=== PATIENT | female | born 1965 | race Caucasian/White ===

== ENCOUNTER 2017-12-24 11:43 | Emergency (ER) | payer OTHER, SELFPAY ==
[2017-12-24 11:50] VITALS: BP 107/74; PULSE 80; RESP 12; TEMP 36.5; O2SAT 100
--- NOTE | 2017-12-24 14:04 | DI.RAD.S_ITS ---
PROCEDURE: XR WRIST RT MIN 3V INDICATIONS: struck lt wrist several days ago, proximal pain/swelling TECHNIQUE: 4 views of the wrist were acquired. COMPARISON: None. FINDINGS: Bones: No fractures or dislocations. No suspicious bony lesions. Scaphoid view: No trauma found. Soft tissues: No suspicious soft tissue calcifications. IMPRESSION: No trauma found. Dictated by: Gage Kelley M.D. on 12/24/2017 at 15:06 Approved by: Gage Kelley M.D. on 12/24/2017 at 15:06
--- NOTE | 2017-12-24 14:42 | ED.UPPEXIN ---
HPI - Extremity Injury (Upper) <LACEY Coleman - Last Filed: 12/24/17 22:07> General Chief Complaint: Extremity Injury, Upper Stated Complaint: INJURED RIGHT ARM Time Seen by Provider: 12/24/17 14:51 Source: patient Mode of arrival: ambulatory Limitations: no limitations History of Present Illness HPI narrative: 52-year-old female here for complaint of pain into her right wrist over the last 4-5 days. She states that it started hurting after she was getting something out of her trunk and she thinks she bumped it into something several days ago. She reports increased pain with motion of the right wrist. She reports that not moving the right wrist helps with her discomfort. She states that she feels a over a been when she moves her right wrist. She denies any other injuries or concerns. MD complaint: injury to: right and wrist Related Data Previous Rx's Medication Instructions Recorded ciprofloxacin HCl [Cipro] 500 mg PO BID 7 Days #0 tab 11/22/15 metronidazole [Flagyl] 500 mg PO TID 7 Days #0 11/22/15 Allergies Allergy/AdvReac Type Severity Reaction Status Date / Time No Known Drug Allergies Allergy Verified 12/24/17 14:44 Review of Systems <LACEY Coleman - Last Filed: 12/24/17 22:07> Constitutional Denies chills, Denies fever(s), Denies lethargy and Denies weakness Eyes Denies change in vision, Denies eye discharge, Denies irritation and Denies loss of vision ENT Ears, Nose, Mouth, and Throat: Denies change in voice, Denies neck pain and Denies sore throat Cardiovascular Denies chest pain, Denies irregular heart rhythm, Denies lightheadedness, Denies palpitations, Denies dyspnea, Denies dyspnea on exertion and Denies orthopnea Respiratory Denies cough, Denies dyspnea, Denies dyspnea on exertion and Denies wheezing Gastrointestinal Gastrointestinal: Denies abdominal pain, Denies change in bowel habits, Denies diarrhea, Denies nausea and Denies vomiting Genitourinary Denies hematuria, Denies flank pain, Denies urinary incontinence and Denies urinary urgency Musculoskeletal Denies neck pain Comments: Right wrist pain Integumentary/Breasts Denies pruritus, Denies erythema, Denies rash and Denies wounds Neurologic Denies confusion, Denies loss of vision and Denies weakness Psychiatric Denies anxiety, Denies confusion, Denies depression, Denies homicidal ideation and Denies suicidal ideation Endocrine Denies palpitations Hematologic/Lymphatic Denies easy bruising Allergic/Immunologic Denies wheezing Exam <LACEY Coleman - Last Filed: 12/24/17 22:07> Initial Vital Signs Initial Vital Signs: Vital Signs Temperature 97.7 F 12/24/17 11:50 Pulse Rate 80 12/24/17 11:50 Respiratory Rate 12 12/24/17 11:50 Blood Pressure 107/74 12/24/17 11:50 Pulse Oximetry 100 12/24/17 11:50 Const General: cooperative and well developed Nutritional Appearance: well nourished Orientation: alert, awake, oriented x3 and not confused HENMT Mouth: oral mucosae normal and moist mucous membranes Eyes Conjunctivae: conjunctivae normal Sclera: sclerae normal Pupils: PERRL EOM: EOM intact bilaterally Resp Effort & Inspection: normal respiratory effort, able to speak in complete sentences, no respiratory distress and no use of accessory muscles Auscultation: clear to auscultation bilaterally, no rales, no rhonchi and no wheezes Cardio Rate: regular rate Rhythm: regular rhythm Heart Sounds: no click, no gallops, no murmurs and no rubs Pulses: normal peripheral pulses Skin General: no rashes or lesions noted, No jaundice and No petechiae Neuro General: alert, oriented x3, gait normal and no focal motor deficits Speech: speech normal <Luz Bustamante DO - Last Filed: 12/25/17 11:21> Initial Vital Signs Initial Vital Signs: Vital Signs Temperature 97.7 F 12/24/17 11:50 Pulse Rate 80 12/24/17 11:50 Respiratory Rate 12 12/24/17 11:50 Blood Pressure 107/74 12/24/17 11:50 Pulse Oximetry 100 12/24/17 11:50 Course <LACEY Coleman - Last Filed: 12/24/17 22:07> Orders Ordered: ED Orders 12/24/17 14:04 XR wrist RT min 3V Stat Vital Signs - 8 hr 12/24/17 11:50 Temperature 97.7 F Pulse Rate 80 Respiratory Rate 12 Blood Pressure 107/74 Pulse Oximetry 100 <Luz Bustamante DO - Last Filed: 12/25/17 11:21> Orders Ordered: ED Orders 12/24/17 14:04 XR wrist RT min 3V Stat Vital Signs - 8 hr 12/24/17 11:50 Temperature 97.7 F Pulse Rate 80 Respiratory Rate 12 Blood Pressure 107/74 Pulse Oximetry 100 [facility] - Extremity Injury (Upper) <LACEY Coleman - Last Filed: 12/24/17 22:07> Differential Diagnosis Differential diagnosis: Likely sprain and strain of wrist Imaging Data Right wrist : Radiologist's impression: [address] [address] XRay Report Signed Patient: Radha Dennis MR#: [id number] : 1965 Acct:[id number] Age/Sex: 52 / F Date of Service: 12/24/17 Loc: ED Accession Number: [id number] Procedure: XR wrist RT min 3V Ordering Provider: Sundeep Foss PROCEDURE: XR WRIST RT MIN 3V INDICATIONS: struck lt wrist several days ago, proximal pain/swelling TECHNIQUE: 4 views of the wrist were acquired. COMPARISON: None. FINDINGS: Bones: No fractures or dislocations. No suspicious bony lesions. Scaphoid view: No trauma found. Soft tissues: No suspicious soft tissue calcifications. IMPRESSION: No trauma found. Dictated by: Gage Kelley M.D. on 12/24/2017 at 15:06 Approved by: Gage Kelley M.D. on 12/24/2017 at 15:06 [facility] Narrative Medical decision making narrative: X-ray the right wrist was obtained was negative for any acute findings. Signs and symptoms presents as sprain to right wrist or tendinitis. She is placed in a splint for comfort and support. Cvnb-bas-ajulgtx ibuprofen for anti-inflammatory effects and for discomfort. Rest area. Ice to area a few times a day 20 min at a time over the next several days. Follow up with primary care provider next week. For any worsening symptoms return to the emergency room. Discharge Plan Departure Patient Disposition: Home Clinical Impression: Right wrist tendinitis Discharge Date/Time: 12/24/17 16:10 Interventions: ED Discharge Assessment Last Done: 12/24/17 16:10 Instructions: DI for Tendinitis Activity Restrictions/Additional Instructions: X-ray the right wrist was obtained was negative for any acute findings. Signs and symptoms presents as sprain to right wrist or tendinitis. She is placed in a splint for comfort and support. Ghke-fhi-dbaghrm ibuprofen for anti-inflammatory effects and for discomfort. Rest area. Ice to area a few times a day 20 min at a time over the next several days. Follow up with primary care provider next week. For any worsening symptoms return to the emergency room. Prescriptions: No Action metronidazole [Flagyl] 500 MG tablet 500 mg PO TID 7 Days Qty: 0 RF: 0 ciprofloxacin HCl [Cipro] 500 MG tablet 500 mg PO BID 7 Days Qty: 0 RF: 0 Referrals: [employer] [facility] [Provider Group] Provider,Conversion [Non-Staff] - Stand Alone Forms: Work/School Restrictions <Luz Bustamante DO - Last Filed: 12/25/17 11:21> Cosign ED Attending Zaheer Attestation: I was immediately available in the department for consultation. Documentation has been reviewed. I agree with assessment and plan.
--- NOTE | 2017-12-24 15:17 | ED_ITS ---
HPI - Extremity Injury (Upper) <LACEY Coleman - Last Filed: 12/24/17 22:07> General Chief Complaint: Extremity Injury, Upper Stated Complaint: INJURED RIGHT ARM Time Seen by Provider: 12/24/17 14:51 Source: patient Mode of arrival: ambulatory Limitations: no limitations History of Present Illness HPI narrative: 52-year-old female here for complaint of pain into her right wrist over the last 4-5 days. She states that it started hurting after she was getting something out of her trunk and she thinks she bumped it into something several days ago. She reports increased pain with motion of the right wrist. She reports that not moving the right wrist helps with her discomfort. She states that she feels a over a been when she moves her right wrist. She denies any other injuries or concerns. MD complaint: injury to: right and wrist Related Data Previous Rx's Medication Instructions Recorded ciprofloxacin HCl [Cipro] 500 mg PO BID 7 Days #0 tab 11/22/15 metronidazole [Flagyl] 500 mg PO TID 7 Days #0 11/22/15 Allergies Allergy/AdvReac Type Severity Reaction Status Date / Time No Known Drug Allergies Allergy Verified 12/24/17 14:44 Review of Systems <LACEY Coleman - Last Filed: 12/24/17 22:07> Constitutional Denies chills, Denies fever(s), Denies lethargy and Denies weakness Eyes Denies change in vision, Denies eye discharge, Denies irritation and Denies loss of vision ENT Ears, Nose, Mouth, and Throat: Denies change in voice, Denies neck pain and Denies sore throat Cardiovascular Denies chest pain, Denies irregular heart rhythm, Denies lightheadedness, Denies palpitations, Denies dyspnea, Denies dyspnea on exertion and Denies orthopnea Respiratory Denies cough, Denies dyspnea, Denies dyspnea on exertion and Denies wheezing Gastrointestinal Gastrointestinal: Denies abdominal pain, Denies change in bowel habits, Denies diarrhea, Denies nausea and Denies vomiting Genitourinary Denies hematuria, Denies flank pain, Denies urinary incontinence and Denies urinary urgency Musculoskeletal Denies neck pain Comments: Right wrist pain Integumentary/Breasts Denies pruritus, Denies erythema, Denies rash and Denies wounds Neurologic Denies confusion, Denies loss of vision and Denies weakness Psychiatric Denies anxiety, Denies confusion, Denies depression, Denies homicidal ideation and Denies suicidal ideation Endocrine Denies palpitations Hematologic/Lymphatic Denies easy bruising Allergic/Immunologic Denies wheezing Exam <LACEY Coleman - Last Filed: 12/24/17 22:07> Initial Vital Signs Initial Vital Signs: Vital Signs Temperature 97.7 F 12/24/17 11:50 Pulse Rate 80 12/24/17 11:50 Respiratory Rate 12 12/24/17 11:50 Blood Pressure 107/74 12/24/17 11:50 Pulse Oximetry 100 12/24/17 11:50 Const General: cooperative and well developed Nutritional Appearance: well nourished Orientation: alert, awake, oriented x3 and not confused HENMT Mouth: oral mucosae normal and moist mucous membranes Eyes Conjunctivae: conjunctivae normal Sclera: sclerae normal Pupils: PERRL EOM: EOM intact bilaterally Resp Effort & Inspection: normal respiratory effort, able to speak in complete sentences, no respiratory distress and no use of accessory muscles Auscultation: clear to auscultation bilaterally, no rales, no rhonchi and no wheezes Cardio Rate: regular rate Rhythm: regular rhythm Heart Sounds: no click, no gallops, no murmurs and no rubs Pulses: normal peripheral pulses Skin General: no rashes or lesions noted, No jaundice and No petechiae Neuro General: alert, oriented x3, gait normal and no focal motor deficits Speech: speech normal <Luz Bustamante DO - Last Filed: 12/25/17 11:21> Initial Vital Signs Initial Vital Signs: Vital Signs Temperature 97.7 F 12/24/17 11:50 Pulse Rate 80 12/24/17 11:50 Respiratory Rate 12 12/24/17 11:50 Blood Pressure 107/74 12/24/17 11:50 Pulse Oximetry 100 12/24/17 11:50 Course <LACEY Coleman - Last Filed: 12/24/17 22:07> Orders Ordered: ED Orders 12/24/17 14:04 XR wrist RT min 3V Stat Vital Signs - 8 hr 12/24/17 11:50 Temperature 97.7 F Pulse Rate 80 Respiratory Rate 12 Blood Pressure 107/74 Pulse Oximetry 100 <Luz Bustamante DO - Last Filed: 12/25/17 11:21> Orders Ordered: ED Orders 12/24/17 14:04 XR wrist RT min 3V Stat Vital Signs - 8 hr 12/24/17 11:50 Temperature 97.7 F Pulse Rate 80 Respiratory Rate 12 Blood Pressure 107/74 Pulse Oximetry 100 [facility] - Extremity Injury (Upper) <LACEY Coleman - Last Filed: 12/24/17 22:07> Differential Diagnosis Differential diagnosis: Likely sprain and strain of wrist Imaging Data Right wrist : Radiologist's impression: [address] [address] XRay Report Signed Patient: Radha Dennis MR#: [id number] : 1965 Acct:[id number] Age/Sex: 52 / F Date of Service: 12/24/17 Loc: ED Accession Number: [id number] Procedure: XR wrist RT min 3V Ordering Provider: Sundeep Foss PROCEDURE: XR WRIST RT MIN 3V INDICATIONS: struck lt wrist several days ago, proximal pain/swelling TECHNIQUE: 4 views of the wrist were acquired. COMPARISON: None. FINDINGS: Bones: No fractures or dislocations. No suspicious bony lesions. Scaphoid view: No trauma found. Soft tissues: No suspicious soft tissue calcifications. IMPRESSION: No trauma found. Dictated by: Gage Kelley M.D. on 12/24/2017 at 15:06 Approved by: Gage Kelley M.D. on 12/24/2017 at 15:06 [facility] Narrative Medical decision making narrative: X-ray the right wrist was obtained was negative for any acute findings. Signs and symptoms presents as sprain to right wrist or tendinitis. She is placed in a splint for comfort and support. Ysfi-mnb-liwuyls ibuprofen for anti-inflammatory effects and for discomfort. Rest area. Ice to area a few times a day 20 min at a time over the next several days. Follow up with primary care provider next week. For any worsening symptoms return to the emergency room. Discharge Plan Departure Patient Disposition: Home Clinical Impression: Right wrist tendinitis Discharge Date/Time: 12/24/17 16:10 Interventions: ED Discharge Assessment Last Done: 12/24/17 16:10 Instructions: DI for Tendinitis Activity Restrictions/Additional Instructions: X-ray the right wrist was obtained was negative for any acute findings. Signs and symptoms presents as sprain to right wrist or tendinitis. She is placed in a splint for comfort and support. Weqy-sla-phswhao ibuprofen for anti- inflammatory effects and for discomfort. Rest area. Ice to area a few times a day 20 min at a time over the next several days. Follow up with primary care provider next week. For any worsening symptoms return to the emergency room. Prescriptions: No Action metronidazole [Flagyl] 500 MG tablet 500 mg PO TID 7 Days Qty: 0 RF: 0 ciprofloxacin HCl [Cipro] 500 MG tablet 500 mg PO BID 7 Days Qty: 0 RF: 0 Referrals: [employer] [facility] [Provider Group] Provider,Conversion [Non-Staff] - Stand Alone Forms: Work/School Restrictions <Luz Bustamante DO - Last Filed: 12/25/17 11:21> Cosign ED Attending Zaheer Attestation: I was immediately available in the department for consultation. Documentation has been reviewed. I agree with assessment and plan.
== END 2017-12-24 16:10 | disposition home or self-care (01) ==
PROVIDERS: Emergency Provider Nurse Practitioner Family
DX: M77.8 Other enthesopathies, not elsewhere classified (principal)
CPT/HCPCS: 29260; 73110; 99282; 99283

== ENCOUNTER 2018-02-04 06:19 | Day surgery (SDC) | payer OTHER, SELFPAY ==
[2018-01-21 07:37] VITALS: BMI 26.1
[2018-02-04] VITALS (9 sets, daily range): BP systolic 119–177; BP diastolic 76–113; PULSE 78–90; RESP 12–16; TEMP 36.2–36.8; O2SAT 88–99; BMI 26.1
[2018-02-04] MEDS: LACTATED RINGERS 1,000 ML 42 ML IV (06:48)
[2018-02-04] MEDS: CEFAZOLIN 2 GM/100 ML FROZ.PIGGY IV (07:45)
--- NOTE | 2018-02-04 07:47 | PM.PREOP ---
Pre-operative Note Interval Note Pre-op Check: Yes History & Physical Reviewed by Physician Changes: No
[2018-02-04] MEDS: BUPIVACAINE 0.5% W/ EPI (PF) VIAL 30 ML INJ (08:51)
[2018-02-04] MEDS: fentaNYL 100 MCG/2 ML INJ 50 MCG IV (09:25)
--- NOTE | 2018-02-04 09:31 | P.OP_ITS ---
Operative Date/Time/Diagnoses Date of procedure: 02/04/18 Time of procedure: 08:00 Pre-op diagnosis: Left basal thumb arthritis. Left carpal tunnel. Post-op diagnosis: same Procedure & Clinicians Procedure: Left basal thumb arthroplasty. Left carpal tunnel Same procedure as scheduled: Yes Indications: End-stage arthritis to the left basal joint unresponsive to conservative treatment. Physical exam findings as well as EMG studies positive for carpal tunnel. Surgeon: Onur Slade Pharmacy Affairs Assistant: Nelly Null Anesthesia Type: General Operative Notes Findings: End-stage arthritic changes to the basal joint as well as compression of the median nerve at the carpal tunnel. Closure Type: primary Specimen(s): none sent Implants & Drains: Two Arthrex anchors and labral tape Applied: device(s) and graft(s) Estimated Blood Loss (mL): 10 Tourniquet time (min): 50 Procedure in detail: On date of service, the patient was met in the holding area. The operative site was signed and witnessed by the OR staff. The surgery was once again discussed with patient, and any remaining questions Were answered fully. Patient was taken back to the operating theater and placed on the operating table in a supine position. Great care was taken to ensure that all bony prominences were properly padded. A well-padded tourniquet was placed up along the upper extremity. A timeout was performed verifying patient's name, procedure, and operative site. The arm was prepped and draped in the normal sterile fashion. An Esmarch was used to exsanguinate the limb and the tourniquet was turned up to 250 mm mercury. The palmar fascia was then sharply incised using a 15 blade. This gave us good visualization of the carpal ligament. A small opening was made into the carpal ligament, and a curved hemostat was placed into that opening. A 15 blade was then used to sharply incise the carpal ligament with the structures beneath being protected by the hemostat. Pickups and Metzenbaum scissors were used to complete the decompression both distally and proximally. This provided a complete decompression of the median nerve. The wound was then irrigated and closed with nylon. A 15 blade was used to incise the skin only in a dorsal radial position. Pickups and tenotomy 3 used to dissect down through the fascial tissue. Great care was taken to ensure that the branches off the superficial radial nerve root identified and protected. Next, an interval was made between EPB and APL. The recurrent branch of the radial artery was identified and protected. The capsular tissues surrounding the basal joints was opened and released around the trapezium and a 360? fashion. This gave us good visualization of the basal joint as well as the trapezial scaphoid joint. Significant arthritis at the basal joints but no sign of any arthritis at the trapezial scaphoid joint. Next the trapezium was removed as well as any potential osteophytes. The wound was then copiously irrigated to remove any remaining bony fragments. The FCR tendon was then harvested. A 2mm strip of tendon was taken proximally without disturbing the distal attachment. 2 drill holes were made. One in the base of the first metacarpal and one in the base of the second metacarpal. C- arm was brought in to verify positioning of the K wires. A strand of labral tape was folded back Onto itself. The 2 strands of labral tape as well as the strip of FCR was secured in the bone tunnel in the second metacarpal with a screw. This was then brought over to the first metacarpal and anchored into the metacarpal using the swivel lock screw. This provided a secure suspension plasty of the thumb, as well as recreating the beak ligament. The wound was irrigated once again. A thick capsular closure was performed using 2-0 Ethibond. The rest of the wound was closed in a layered fashion. The hand was then cleaned, dried, and dressed. Patient was placed into a thumb spica splint. Patient was taken back to the PACU in stable condition. Complications: none Condition: stable Disposition: PACU Plan for aftercare: Patient will be immobilized for 2 weeks placed in a removable brace. After 2 weeks, patient will be
[2018-02-04] MEDS: HYDROMORPHONE 2 MG INJ 0.5 MG IV ×4 (09:40→09:55)
[2018-02-04] MEDS: OXYCODONE/ACETAMINOPHEN 5/325 TABLET 1 TAB PO (10:02)
--- NOTE | 2018-02-04 10:18 | SUR.OPER ---
Supine on padded OR bed, head on pillow, arms secured on padded arm boards at <90 degrees abduction, legs uncrossed, safety belt at thigh, tape over blanket over lower legs.
--- NOTE | 2018-02-04 10:25 | SUR.PHASEII ---
pt to opd from pacu , dressing dci, pain 5/10 . hand elevated and ice to surgical site , no nausea
--- NOTE | 2018-02-04 11:18 | SUR.PHASEII ---
1055 pt dressed , ambulated to bathroom to void, vss, pain 4/10, dressing dci, steady on feet, no nausea
== END 2018-02-04 11:08 | disposition home or self-care (01) ==
PROVIDERS: Visit Provider Orthopaedic Surgery
PROC: (CPT 26540; principal; 2018-02-04 07:45)
PROC: (CPT 64721; 2018-02-04 07:45)
DX: M18.12 Unilateral primary osteoarthritis of first carpometacarpal joint, left hand (principal); G56.02 Carpal tunnel syndrome, left upper limb; Z87.891 Personal history of nicotine dependence; F33.41 Major depressive disorder, recurrent, in partial remission
CPT/HCPCS: 25447; 25310; 64721; J0690; J1170; J2405; J2704; J3010

== ENCOUNTER 2018-09-23 12:29 | Emergency (ER) | payer OTHER, SELFPAY ==
[2018-09-23 12:38] VITALS: BP 128/86; PULSE 94; RESP 14; TEMP 37; O2SAT 98; BMI 25.7
--- NOTE | 2018-09-23 13:16 | ED.URI ---
HPI - URI/Sore Throat <BETTY Almanza - Last Filed: 09/23/18 13:59> General Chief Complaint: Upper Respiratory Symptoms Stated Complaint: states possible ear infection in right ear [id number] Time Seen by Provider: 09/23/18 12:36 Source: patient Mode of arrival: ambulatory Limitations: no limitations History of Present Illness HPI Narrative: The patient is a 53-year-old female former smoker with history of anxiety who presents with a chief complaint right ear pain for 2 weeks. She states she was visiting her father in [place]. She has been using jufd-bln-[id number] medications live early. She also states that her ear pain was preceded by cough and cold symptoms. She states her pain got worse with flight home from [place] to here. She states that she then had drainage from her ear. She does have a history of ear infections. She denies any fevers nausea vomiting or diarrhea. Related Data Home Medications Medication Instructions Recorded Confirmed venlafaxine 150 mg PO BEDTIME 02/04/18 02/04/18 Previous Rx's Medication Instructions Recorded hydroxyzine pamoate [Vistaril] 25 mg PO TID-QID PRN #60 cap 02/04/18 oxycodone-acetaminophen [Percocet] 2 tab PO Q4-6H PRN #60 tab 02/04/18 amoxicillin 1,000 mg PO BID 7 Days #28 tab 09/23/18 ofloxacin 10 drop EAR-BOTH BID #10 ml 09/23/18 Allergies Allergy/AdvReac Type Severity Reaction Status Date / Time No Known Drug Allergies Allergy Verified 09/23/18 12:38 Review of Systems <BETTY Almanza - Last Filed: 09/23/18 13:59> Review of Systems GENERAL: Denies chills, fatigue, malaise, fever, sweats. HEENT: See HPI RESPIRATORY: Denies dyspnea, cough, wheezing, hemoptysis, sputum. CARDIOVASCULAR: Denies chest pain, palpitations, orthopnea, edema, GASTROINTESTINAL: Denies nausea, vomiting, abdominal pain, diarrhea, constipation, melena. : Denies dysuria, frequency, incontinence, hematuria, urinary retention. MUSCULOSKELETAL: denies weakness, joint pain, or bony pain SKIN: Denies rash, skin lesions, or other NEUROLOGIC: Denies weakness, headache, numbness, change in speech, confusion, seizures, incoordination. PSYCHIATRIC: No concerning psychosocial issues. 12 point review of systems is negative except for those stated above PFSH <BETTY Almanza - Last Filed: 09/23/18 13:59> Medical History Arthritis (Acute) Carpal tunnel syndrome of left wrist (Acute) Depression (Acute) Diverticulitis (Acute) History of kidney stones (Acute) Night sweats (Acute) Surgical History H/O excision of ganglion cyst (Acute ~03/29/16) H/O umbilical hernia repair (Acute) History of bilateral tubal ligation (Acute) History of carpal tunnel release (Acute ~03/29/16) S/P LASIK surgery (Acute) Social History (Updated 12/24/17 @ 15:36 by LACEY Coleman) Smoking Status: Former smoker alcohol intake: current substance use type: does not use Social History Smoking Status: Former smoker alcohol intake: current substance use type: does not use Exam <BETTY Almanza - Last Filed: 09/23/18 13:59> Narrative Exam Narrative: GENERAL: This is a well-nourished, well-developed patient, in no acute distress HEAD: Atraumatic. Normocephalic. No temporal or scalp tenderness. EYES: Pupils equal round and reactive. Extraocular motions intact. No scleral icterus. No injection or drainage. ENT: Nose without bleeding, purulent drainage or septal hematoma. Throat without erythema, tonsillar hypertrophy or exudate. Uvula midline. Airway patent. Left TM pearly vincent. Right TM erythematous, bulging, drainage noted in ear. perforated TM noted. NECK: Trachea midline. No JVD or lymphadenopathy. Supple, nontender, no meningeal signs. CARDIOVASCULAR: Regular rate and rhythm without murmurs, gallops, or rubs. RESPIRATORY: Clear to auscultation. Breath sounds equal bilaterally. No wheezes, rales, or rhonchi. GASTROINTESTINAL: Abdomen soft, non-tender, nondistended. No hepato-splenomegaly, or palpable masses. No guarding. EXTREMITIES: No clubbing, cyanosis, or edema. No joint tenderness, effusion, or edema noted. BACK: Nontender without deformity or crepitance. No flank tenderness. NEURO: AOx3. SKIN: No rash or erythema. Initial Vital Signs Initial Vital Signs: Vital Signs Temperature 98.6 F 09/23/18 12:38 Pulse Rate 94 H 09/23/18 12:38 Respiratory Rate 14 09/23/18 12:38 Blood Pressure 128/86 09/23/18 12:38 Pulse Oximetry 98 09/23/18 12:38 <Fabby Kang DO - Last Filed: 09/23/18 19:22> Initial Vital Signs Initial Vital Signs: Vital Signs Temperature 98.6 F 09/23/18 12:38 Pulse Rate 94 H 09/23/18 12:38 Respiratory Rate 14 09/23/18 12:38 Blood Pressure 128/86 09/23/18 12:38 Pulse Oximetry 98 09/23/18 12:38 Course <BETTY Almanza - Last Filed: 09/23/18 13:59> Vital Signs - 8 hr 09/23/18 12:38 Temperature 98.6 F Pulse Rate 94 H Respiratory Rate 14 Blood Pressure 128/86 Pulse Oximetry 98 <Fabby Kang DO - Last Filed: 09/23/18 19:22> Vital Signs - 8 hr 09/23/18 12:38 Temperature 98.6 F Pulse Rate 94 H Respiratory Rate 14 Blood Pressure 128/86 Pulse Oximetry 98 MDM - URI/Sore Throat <BETTY Almanza - Last Filed: 09/23/18 13:59> MDM Narrative Medical decision making narrative: The patient is a 53-year-old female who presents with ear pain. On exam she has otitis media with TM rupture. Thus I will treat with amoxicillin as well as ofloxacin drops. I encouraged the patient to follow up with the primary care provider. Encourage come back to the emergency department for any acute concerns such as chest pain shortness of breath etc. Encouraged [id number] medications as needed and able. Patient has no questions or concerns upon discharge. Discharge Plan Departure Patient Disposition: Home Clinical Impression: Otitis media Qualifiers: Otitis media type: suppurative Chronicity: acute Laterality: right Recurrence: non-recurrent Spontaneous tympanic membrane rupture: with spontaneous rupture Qualified Code(s): H66.011 - Acute suppurative otitis media with spontaneous rupture of ear drum, right ear Discharge Date/Time: 09/23/18 13:33 Interventions: ED Discharge Assessment Last Done: 09/23/18 13:32 Instructions: DI for Otitis Media (Middle Ear Infection)-Child, DI for Ear Pain-Adult Activity Restrictions/Additional Instructions: I have given you antibiotics for an ear infection. Please continue [id number] medications as needed and able. Please follow up with primary care provider. Please come back to the emergency department for any acute concerns such as chest pain shortness of breath etc Prescriptions: New amoxicillin 500 mg tablet 1,000 mg PO BID 7 Days Qty: 28 RF: 0 ofloxacin 0.3 % drops 10 drop EAR-BOTH BID Qty: 10 RF: 0 No Action venlafaxine 150 mg Capsule,Extended Release 24hr 150 mg PO BEDTIME RF: 0 oxycodone-acetaminophen [Percocet] 5-325 mg tablet 2 tab PO Q4-6H PRN (Reason: pain) Qty: 60 RF: 0 hydroxyzine pamoate [Vistaril] 25 mg capsule 25 mg PO TID-QID PRN (Reason: spasms) Qty: 60 RF: 0 Referrals: [facility] [Provider Group] <Fabby Kang DO - Last Filed: 09/23/18 19:22> Cosign ED Attending Zaheer Attestation: I was immediately available in the department for consultation. This documentation has been reviewed and I agree with assessment and plan. Supervised by Fabby Kang DO
--- NOTE | 2018-09-23 13:19 | ED_ITS ---
HPI - URI/Sore Throat <BETTY Almanza - Last Filed: 09/23/18 13:59> General Chief Complaint: Upper Respiratory Symptoms Stated Complaint: states possible ear infection in right ear [id number] Time Seen by Provider: 09/23/18 12:36 Source: patient Mode of arrival: ambulatory Limitations: no limitations History of Present Illness HPI Narrative: The patient is a 53-year-old female former smoker with history of anxiety who presents with a chief complaint right ear pain for 2 weeks. She states she was visiting her father in [place]. She has been using ngsw-flj-vgnphyx medications live early. She also states that her ear pain was preceded by cough and cold symptoms. She states her pain got worse with flight home from [place] to here. She states that she then had drainage from her ear. She does have a history of ear infections. She denies any fevers nausea vomiting or diarrhea. Related Data Home Medications Medication Instructions Recorded Confirmed venlafaxine 150 mg PO BEDTIME 02/04/18 02/04/18 Previous Rx's Medication Instructions Recorded hydroxyzine pamoate [Vistaril] 25 mg PO TID-QID PRN #60 cap 02/04/18 oxycodone-acetaminophen [Percocet] 2 tab PO Q4-6H PRN #60 tab 02/04/18 amoxicillin 1,000 mg PO BID 7 Days #28 tab 09/23/18 ofloxacin 10 drop EAR-BOTH BID #10 ml 09/23/18 Allergies Allergy/AdvReac Type Severity Reaction Status Date / Time No Known Drug Allergies Allergy Verified 09/23/18 12:38 Review of Systems <BETTY Almanza - Last Filed: 09/23/18 13:59> Review of Systems GENERAL: Denies chills, fatigue, malaise, fever, sweats. HEENT: See HPI RESPIRATORY: Denies dyspnea, cough, wheezing, hemoptysis, sputum. CARDIOVASCULAR: Denies chest pain, palpitations, orthopnea, edema, GASTROINTESTINAL: Denies nausea, vomiting, abdominal pain, diarrhea, constipation, melena. : Denies dysuria, frequency, incontinence, hematuria, urinary retention. MUSCULOSKELETAL: denies weakness, joint pain, or bony pain SKIN: Denies rash, skin lesions, or other NEUROLOGIC: Denies weakness, headache, numbness, change in speech, confusion, seizures, incoordination. PSYCHIATRIC: No concerning psychosocial issues. 12 point review of systems is negative except for those stated above PFSH <BETTY Almanza - Last Filed: 09/23/18 13:59> Medical History Arthritis (Acute) Carpal tunnel syndrome of left wrist (Acute) Depression (Acute) Diverticulitis (Acute) History of kidney stones (Acute) Night sweats (Acute) Surgical History H/O excision of ganglion cyst (Acute ~03/29/16) H/O umbilical hernia repair (Acute) History of bilateral tubal ligation (Acute) History of carpal tunnel release (Acute ~03/29/16) S/P LASIK surgery (Acute) Social History (Updated 12/24/17 @ 15:36 by LACEY Coleman) Smoking Status: Former smoker alcohol intake: current substance use type: does not use Social History Smoking Status: Former smoker alcohol intake: current substance use type: does not use Exam <BETTY Almanza - Last Filed: 09/23/18 13:59> Narrative Exam Narrative: GENERAL: This is a well-nourished, well-developed patient, in no acute distress HEAD: Atraumatic. Normocephalic. No temporal or scalp tenderness. EYES: Pupils equal round and reactive. Extraocular motions intact. No scleral icterus. No injection or drainage. ENT: Nose without bleeding, purulent drainage or septal hematoma. Throat without erythema, tonsillar hypertrophy or exudate. Uvula midline. Airway patent. Left TM pearly vincent. Right TM erythematous, bulging, drainage noted in ear. perforated TM noted. NECK: Trachea midline. No JVD or lymphadenopathy. Supple, nontender, no meningeal signs. CARDIOVASCULAR: Regular rate and rhythm without murmurs, gallops, or rubs. RESPIRATORY: Clear to auscultation. Breath sounds equal bilaterally. No wheezes, rales, or rhonchi. GASTROINTESTINAL: Abdomen soft, non-tender, nondistended. No hepato- splenomegaly, or palpable masses. No guarding. EXTREMITIES: No clubbing, cyanosis, or edema. No joint tenderness, effusion, or edema noted. BACK: Nontender without deformity or crepitance. No flank tenderness. NEURO: AOx3. SKIN: No rash or erythema. Initial Vital Signs Initial Vital Signs: Vital Signs Temperature 98.6 F 09/23/18 12:38 Pulse Rate 94 H 09/23/18 12:38 Respiratory Rate 14 09/23/18 12:38 Blood Pressure 128/86 09/23/18 12:38 Pulse Oximetry 98 09/23/18 12:38 <Fabby Kang DO - Last Filed: 09/23/18 19:22> Initial Vital Signs Initial Vital Signs: Vital Signs Temperature 98.6 F 09/23/18 12:38 Pulse Rate 94 H 09/23/18 12:38 Respiratory Rate 14 09/23/18 12:38 Blood Pressure 128/86 09/23/18 12:38 Pulse Oximetry 98 09/23/18 12:38 Course <BETTY Almanza - Last Filed: 09/23/18 13:59> Vital Signs - 8 hr 09/23/18 12:38 Temperature 98.6 F Pulse Rate 94 H Respiratory Rate 14 Blood Pressure 128/86 Pulse Oximetry 98 <Fabby Kang DO - Last Filed: 09/23/18 19:22> Vital Signs - 8 hr 09/23/18 12:38 Temperature 98.6 F Pulse Rate 94 H Respiratory Rate 14 Blood Pressure 128/86 Pulse Oximetry 98 MDM - URI/Sore Throat <BETTY Almanza - Last Filed: 09/23/18 13:59> MDM Narrative Medical decision making narrative: The patient is a 53-year-old female who presents with ear pain. On exam she has otitis media with TM rupture. Thus I will treat with amoxicillin as well as ofloxacin drops. I encouraged the patient to follow up with the primary care provider. Encourage come back to the emergency department for any acute concerns such as chest pain shortness of breath etc. Encouraged qceq-yau-ixphzvy medications as needed and able. Patient has no questions or concerns upon discharge. Discharge Plan Departure Patient Disposition: Home Clinical Impression: Otitis media Qualifiers: Otitis media type: suppurative Chronicity: acute Laterality: right Recurrence: non-recurrent Spontaneous tympanic membrane rupture: with spontaneous rupture Qualified Code(s): H66.011 - Acute suppurative otitis media with spontaneous rupture of ear drum, right ear Discharge Date/Time: 09/23/18 13:33 Interventions: ED Discharge Assessment Last Done: 09/23/18 13:32 Instructions: DI for Otitis Media (Middle Ear Infection)-Child, DI for Ear Pain-Adult Activity Restrictions/Additional Instructions: I have given you antibiotics for an ear infection. Please continue lxas-wha-myqrikp medications as needed and able. Please follow up with primary care provider. Please come back to the emergency department for any acute concerns such as chest pain shortness of breath etc Prescriptions: New amoxicillin 500 mg tablet 1,000 mg PO BID 7 Days Qty: 28 RF: 0 ofloxacin 0.3 % drops 10 drop EAR-BOTH BID Qty: 10 RF: 0 No Action venlafaxine 150 mg Capsule,Extended Release 24hr 150 mg PO BEDTIME RF: 0 oxycodone-acetaminophen [Percocet] 5-325 mg tablet 2 tab PO Q4-6H PRN (Reason: pain) Qty: 60 RF: 0 hydroxyzine pamoate [Vistaril] 25 mg capsule 25 mg PO TID-QID PRN (Reason: spasms) Qty: 60 RF: 0 Referrals: [facility] [Provider Group] <Fabby Kang DO - Last Filed: 09/23/18 19:22> Cosign ED Attending Zaheer Attestation: I was immediately available in the department for consultation. This documentation has been reviewed and I agree with assessment and plan. Supervised by Fabby Kang DO
== END 2018-09-23 13:33 | disposition home or self-care (01) ==
PROVIDERS: Emergency Provider Nurse Practitioner Family
DX: H66.011 Acute suppurative otitis media with spontaneous rupture of ear drum, right ear (principal)
CPT/HCPCS: 99282; 99283

== ENCOUNTER 2023-02-01 09:40 | Emergency (ER) | payer OTHER, SELFPAY ==
[2023-02-01 09:43] VITALS: BP 154/98; PULSE 80; RESP 14; TEMP 36.5; O2SAT 99; BMI 26.6
--- NOTE | 2023-02-01 09:59 | ED_ITS ---
HPI - General Adult General Chief complaint: Upper Respiratory Symptoms Stated complaint: has strep not getting better/HX 01/24 Time Seen by Provider: 02/01/23 09:47 Source: patient Mode of arrival: Ambulatory History of Present Illness HPI narrative: 58-year-old female. Approximately 7 days ago she had a positive rapid strep test. Has been on penicillin for 7 days. She is here for evaluation of continue symptoms. No problems swallowing. Is having headache. Sinus congestion. No rashes. No problems breathing. It is painful to swallow. Related Data Home Medications Medication Instructions Recorded Confirmed venlafaxine 150 mg 225 mg PO BEDTIME 02/04/18 02/01/23 capsule,extended release 24 hr Allergies Allergy/AdvReac Type Severity Reaction Status Date / Time No Known Drug Allergies Allergy Verified 02/01/23 09:51 Review of Systems Constitutional Constitutional: Reports system reviewed and no additional complaints, except as documented ENT Ears, Nose, Mouth, and Throat: Reports system reviewed and no additional complaints, except as documented Respiratory Respiratory: Reports system reviewed and no additional complaints, except as documented Integumentary/Breasts Skin/Breast: Reports system reviewed and no additional complaints, except as documented Neurologic Neurologic: Reports system reviewed and no additional complaints, except as documented Patient History Medical History Corneal abrasion History of kidney stones Diverticulitis Night sweats Arthritis Carpal tunnel syndrome of left wrist Depression Surgical History H/O umbilical hernia repair History of bilateral tubal ligation S/P LASIK surgery H/O excision of ganglion cyst (~03/29/16) History of carpal tunnel release (~03/29/16) Social History Smoking Status: Former smoker alcohol intake: current substance use type: does not use Smoking Status: Former smoker Substance Use Type: does not use Exam Initial Vital Signs Initial Vital Signs: Vital Signs Temperature 97.7 F 02/01/23 09:43 Pulse Rate 80 02/01/23 09:43 Respiratory Rate 14 02/01/23 09:43 Blood Pressure 154/98 H 02/01/23 09:43 Pulse Oximetry 99 02/01/23 09:43 Oxygen Delivery Method Room Air 02/01/23 09:43 Const General: cooperative, well developed and No ill appearing [facility] Head: normal to inspection Ears: TM's normal bilaterally Face and sinus: normal facial exam Mouth: oral mucosae normal, lip normal, tongue normal and moist mucous membranes Throat: posterior oropharynx normal, uvula midline and no peritonsillar masses Resp Effort & Inspection: normal respiratory effort Auscultation: clear to auscultation bilaterally Cardio Rate: regular rate Rhythm: regular rhythm Skin General: no rashes or lesions noted Neuro General: patient alert and patient awake Extrem General: capillary refill normal Course Orders Ordered: ED Orders 02/01/23 09:49 COVID19 -Nasal RAPID Stat Throat Culture Stat 02/01/23 10:02 Strep Grp A by PCR Rapid Stat 02/01/23 10:10 Monotest Stat Discontinued Medications Dexamethasone (Dexamethasone 4 Mg Tablet) 12 mg PO NOW ONE Stop: 02/01/23 10:51 Vital Signs Vital signs: Vital Signs - 8 hr 02/01/23 09:43 Temperature 97.7 F Pulse Rate 80 Respiratory Rate 14 Blood Pressure 154/98 H Pulse Oximetry 99 Oxygen Delivery Method Room Air Medical Decision Making Lab Data Labs: Lab Results 02/01/23 02/01/23 02/01/23 Range/Units 09:49 10:02 10:10 SARS-CoV-2 (PCR) Negative (Negative) Monoscreen Negative (Negative) Group A Strep (PCR) Negative (Negative) MDM Narrative Medical decision making narrative: Patient has had a positive rapid strep test. She is on day 7 of 10 of antibiotics. Her physical exam today is not consistent with peritonsillar abscess/retropharyngeal abscess. She is tolerating her secretions and no respiratory distress. No indication for imaging studies. Repeat strep test today is now negative. I did discuss this with her. A throat culture is pending. [place] is negative. COVID is negative. There was no indication to change any of her antibiotics. No indication to add any antibiotics based on her workup here. She should complete the course of her current antibiotics. She was given a dose of steroids to try to help with her symptoms. Will discharge patient home with return precautions. She expressed understanding and agreement. Discharge Plan Departure Patient Disposition: Home Clinical Impression: Strep throat Instructions: DI for Strep Throat Activity Restrictions/Additional Instructions: Continue to take all of your medications as directed to include the antibiotics. You should start to feel some improvement in several hours after getting the steroids here in the ER. Return to the emergency department for new symptoms. Prescriptions: No Action venlafaxine 150 mg Capsule,Extended Release 24hr 225 mg PO BEDTIME Referrals: [facility] [Primary Care Provider] - Stand Alone Forms: Patient Portal/API
[2023-02-01 10:19] LABS: COVID19 -Nasal RAPID Negative (Negative)
[2023-02-01 10:20] LABS: Strep Grp A by PCR Rapid Negative (Negative)
[2023-02-01 10:23] LABS: Monotest Negative (Negative)
[2023-02-01] MEDS: dexAMETHasone 4 MG TABLET 12 MG PO (10:58)
[2023-02-01 11:00] VITALS: BP 148/62; PULSE 78; RESP 16; O2SAT 97
== END 2023-02-01 11:00 | disposition home or self-care (01) ==
PROVIDERS: Emergency Provider Emergency Medicine
DX: J02.0 Streptococcal pharyngitis (principal); Z20.822 Contact with and (suspected) exposure to COVID-19
CPT/HCPCS: 36415; 86318; 87070; 87635; 87651; 99283; C9803